=== PATIENT | male | born 1990 | race African-American/Black ===

== ENCOUNTER 2022-10-24 13:11 | Emergency (ER) | payer OTHER ==
[2022-10-24 13:43] VITALS: BP 129/85; PULSE 58; RESP 18; TEMP 97; BMI 26.2
[2022-10-24] MEDS ORDERED: KETOROLAC TROMETHAMINE 30 MG/1 ML VIAL IM ONE (15:01)
== END 2022-10-24 17:01 | disposition home or self-care (01) ==
LOC: JERFT 13:11 → JER 13:11
PROC: 3E023GC Introduction of Other Therapeutic Substance into Muscle, Percutaneous Approach (ICD-10-PCS; principal; 2022-10-24)
DX: S49.91XA Unspecified injury of right shoulder and upper arm, initial encounter (principal); X50.0XXA Overexertion from strenuous movement or load, initial encounter
CPT/HCPCS: 73030-TC-RT-FY; 99284-25